=== PATIENT | female | born 1990 | race Caucasian/White ===

== ENCOUNTER 2017-04-27 14:02 | Emergency (ER) | payer MEDICAID, OTHER ==
[~2017-04-27] VITALS: Ht 170.2 cm; Wt 84.0 kg
[~2017-04-27 14:02] MED LIST: METH250T PO; PREN-99 PO
[2017-04-27 14:08] VITALS: Ht 170.2 cm; Wt 84.0 kg
--- NOTE | 2017-04-27 14:58 | ERD ---
ER Documentation Chief Complaint Date/Time DATE: 04/27/17 TIME: 14:58 Chief Complaint rt hip pain radiating to lower back x1mth getting worse started in rt knee HPI This is a 27-year-old female presenting to the emergency department complaining of right lower back pain that radiates down to her knee for the past week. Patient is complaining of right hip pain rating it 8 out of 10. She admits to having restricted range of motion. Patient has tried Aleve and ibuprofen without any relief. Denies any saddle anesthesia, bladder or bowel incontinence ROS All systems reviewed and are negative except as per history of present illness. Medications Home Meds Active Scripts Naproxen* (Naprosyn*) 500 Mg Tablet, 500 MG PO BID Y for PAIN AND/OR INFLAMMATION, #30 TAB Prov:MARY MUNROE PA-C 04/27/17 Cyclobenzaprine Hcl* (Cyclobenzaprine Hcl*) 10 Mg Tablet, 10 MG PO TID, #20 TAB Prov:MARY MUNROE PA-C 04/27/17 Reported Medications Vit #76/Iron,Carb/FA (Pnv 29-1 Tablet) 1 Each Tablet, 1 EACH PO DAILY, TAB 01/15/16 Methyldopa* (Methyldopa*) 250 Mg Tablet, 250 MG PO BID, TAB 01/15/16 Allergies Allergies: Coded Allergies: No Known Allergy (Verified , 05/15/16) PMhx/Soc History of Surgery: Yes (cholecystectomy) Hx Miscellaneous Medical Probl: Yes Hx Alcohol Use: Yes (social. stopped last week after positive ) Hx Substance Use: No Hx Tobacco Use: Yes Physical Exam Vitals Vital Signs Date Time Temp Pulse Resp B/P Pulse Ox O2 Delivery O2 Flow Rate FiO2 04/27/17 14:08 97.9 80 20 158/81 98 Physical Exam GENERAL: WD/WN, in no apparent distress, non-toxic appearing HENT: NC/AT EYES: Conjunctiva normal NECK: Supple PULM: Normal labored breathing CV: Good capillary refill GI: Non-distended, no guarding BACK: no deformities noted, normal spinal curvature, TTP on lumbar region, non- tender on spine midline, TTP on right hip, normal anal wink, positive R straight leg raise EXT: No clubbing, cyanosis, or edema NEURO: Moves on all fours, sensation intact, normal gait SKIN: intact PSYCH: Normal mood Results 24 hrs Current Medications Medications (Trade) Dose Ordered Sig/Artis Route PRN Reason Start Time Stop Time Status Last Admin Dose Admin Diazepam (Valium) 10 mg ONCE ONCE PO 04/27/17 15:00 04/27/17 15:01 DC 04/27/17 15:20 Procedures/MDM This is a 27-year-old female presenting to the emergency department complaining of right lower back pain that radiates down her knee for the past week which is likely due to sciatica. Low suspicion for fracture, cauda equina syndrome, spinal stenosis due to physical examination. Patient was tender to palpation in the right hip joint therefore an x-ray was done and it was unremarkable for any fracture dislocation. Patient was given Valium in the ED for muscle relaxation. Patient is neurovascularly intact and he wanted stable for discharge for home. Prescriptions naproxen and Flexeril was given to patient, discussed to return to the ED if not improving as expected or follow-up with a primary care physician. Patient understood and agreed with this plan. Departure Diagnosis: Primary Impression: Hip pain Additional Impression: Sciatica Condition: Stable MARY MUNROE PA-C Apr 27, 2017 14:58
[2017-04-27] MEDS ORDERED: DIAZEPAM 5 MG TAB PO ONE (15:00)
[2017-04-27] MEDS ORDERED: CYCL-319 PO (15:41)
[2017-04-27] MEDS ORDERED: NAPR-260 PO (15:41)
--- NOTE | 2017-04-27 17:17 | RADRPT ---
PROCEDURE: XR Hip. CLINICAL INDICATION: Right hip pain unit 27-year-old female. TECHNIQUE: AP and frog lateral views of the right hip were performed. COMPARISON: None. FINDINGS: The soft tissues and bony elements are normal. A gonadal shield is in place. IMPRESSION: 1. Normal AP and frog-leg views of the right hip. RPTAT:AAJJ Physician Lindsey Date Time Electronically viewed and signed by Parrish Mcdonald Physician on 04/27/2017 17:16 DEBORA/
== END 2017-04-27 18:05 | disposition home or self-care (01) ==
LOC: FTE 14:02
DX: M25.551 Pain in right hip (principal); M54.31 Sciatica, right side; Z87.891 Personal history of nicotine dependence
CPT/HCPCS: 73510; Z7502; Z7610